=== PATIENT | female | born 1970 | race Caucasian/White ===

== ENCOUNTER 2017-07-04 18:22 | Emergency (ER) | payer MEDICAID ==
[~2017-07-04] VITALS: Ht 172.7 cm; Wt 112.2 kg
[2017-07-04] MEDS ORDERED: HYDROmorphone 1 MG/ML, 1ML IVPush PRN (19:00)
[2017-07-04] MEDS ORDERED: SODIUM CHLORIDE 0.9% 1,000 ML IV ONE (19:00)
[2017-07-04] MEDS ORDERED: ONDANSETRON 2MG/ML, 2ML IVPush ONE (19:00)
[2017-07-04] MEDS ORDERED: SODIUM CHLORIDE FLUSH 10ML SYR IVF ONE (19:00)
[2017-07-04 19:41] LABS: HEMATOCRIT 43.3 % (34.6-47.8); HEMOGLOBIN 14.6 g/dL (11.7-16.4); WHITE BLOOD COUNT 7.5 x10^3/uL (3.4-10)
[2017-07-04] MEDS ORDERED: HYDROmorphone 2 MG/ML, 1ML ONE (19:41)
[2017-07-04] MEDS ORDERED: ONDANSETRON 2MG/ML, 2ML ONE (19:41)
[2017-07-04 19:49] LABS: BLOOD UREA NITROGEN 12 mg/dL (7-18)
[2017-07-04 19:54] LABS: ASPARTATE AMINO TRANSFERASE 28 U/L (15-37); IS PT STATUS REG ER OR PRE ER? YES
[2017-07-04] MEDS ORDERED: MAGNESIUM CITRATE 300ML ORAL SOL PO ONE (20:30)
[2017-07-04 20:47] VITALS: BP 124/78
== END 2017-07-04 21:10 | disposition home or self-care (01) ==
LOC: ED 20:58
DX: K59.00 Constipation, unspecified (principal)
CPT/HCPCS: 36415; 74022; 80053; 81003; 83690; 84484; 85025; 93005; 96361; 96374; 96375; 99285; J1170; J2405; J7030

== ENCOUNTER 2018-02-06 04:58 | Emergency (ER) | payer MEDICAID ==
[~2018-02-06] VITALS: Ht 172.7 cm; Wt 106.1 kg
[2018-02-06 05:00] VITALS: BP 155/89
[2018-02-06] MEDS ORDERED: KETOROLAC 30 MG/1 ML ONE (05:24)
[2018-02-06] MEDS ORDERED: KETOROLAC 30 MG/1 ML IM ONE (05:30)
[2018-02-06 05:46] LABS: MICROSCOPIC AUTO
[2018-02-06 05:47] LABS: CULTURE INDICATED? NO
[2018-02-06 05:51] LABS: BASOPHILS # (AUTO) 0.06 x10^3/uL (0-0.1); BASOPHILS % (AUTO) 1 % (0-1); EOSINOPHILS # (AUTO) 0.46 x10^3/uL (0-0.4); EOSINOPHILS % (AUTO) 5 % (1-7); LYMPHOCYTES # (AUTO) 2.88 x10^3/uL (1-3.4); LYMPHOCYTES % (AUTO) 31 % (22-44); MD NO; MEAN CORPUSCULAR HEMOGLOBIN 27.5 pg (27.0-34.8); MEAN CORPUSCULAR HGB CONC 33.9 g/dL (32.4-35.8); MEAN CORPUSCULAR VOLUME 81.3 fL (80-100); MEAN PLATELET VOLUME 6.8 fL (7.4-10.4); MONOCYTES # (AUTO) 0.68 x10^3/uL (0.2-0.8); MONOCYTES % (AUTO) 7 % (2-9); NEUTROPHILS # (AUTO) 5.23 x10^3/uL (1.8-6.8); NEUTROPHILS % (AUTO) 56 % (42-75); PLATELET COUNT 313 x10^3/uL (130-400); RED BLOOD COUNT 5.07 x10^6/uL (3.82-5.3); RED CELL DISTRIBUTION WIDTH 13.3 % (9.6-15.2)
[2018-02-06 06:01] LABS: ALANINE AMINOTRANSFERASE 36 U/L (12-78); ALBUMIN 3.8 g/dL (3.4-5.0); ANION GAP 8 mmol/L (5-15); CALCIUM 9.3 mg/dL (8.5-10.1); CHLORIDE 109 mmol/L (98-107)
[2018-02-06 06:03] LABS: ALKALINE PHOSPHATASE 104 U/L (45-117); BILIRUBIN,TOTAL 0.2 mg/dL (0.2-1.0); TOTAL PROTEIN 7.2 g/dL (6.4-8.2)
== END 2018-02-06 07:04 | disposition home or self-care (01) ==
LOC: ED 06:52
DX: S39.012A Strain of muscle, fascia and tendon of lower back, initial encounter (principal); M46.1 Sacroiliitis, not elsewhere classified; X58.XXXA Exposure to other specified factors, initial encounter; Y93.89 Activity, other specified; Y92.89 Other specified places as the place of occurrence of the external cause; Y99.8 Other external cause status
CPT/HCPCS: 36415; 76770; 80053; 81001; 85025; 96372; 99285; J1885

== ENCOUNTER 2018-06-18 13:22 | Emergency (ER) | payer MEDICAID ==
[~2018-06-18] VITALS: Ht 172.7 cm; Wt 109.2 kg
[2018-06-18] MEDS ORDERED: METOCLOPRAMIDE 5 MG/ML, 2ML IVPush ONE (14:00)
[2018-06-18] MEDS ORDERED: SODIUM CHLORIDE FLUSH 10ML SYR IVF ONE (14:00)
[2018-06-18] MEDS ORDERED: DIPHENHYDRAMINE 50 MG/ML, 1ML IVPush ONE (14:00)
[2018-06-18] MEDS ORDERED: KETOROLAC 30 MG/1 ML IVPush ONE (14:00)
[2018-06-18] MEDS ORDERED: KETOROLAC 30 MG/1 ML ONE (14:08)
[2018-06-18] MEDS ORDERED: DIPHENHYDRAMINE 50 MG/ML, 1ML ONE (14:08)
[2018-06-18] MEDS ORDERED: METOCLOPRAMIDE 5 MG/ML, 2ML ONE (14:08)
[2018-06-18] MEDS ORDERED: BISACODYL 10 MG SUPP PR PRN (14:30)
[2018-06-18 15:05] LABS: BASOPHILS # (AUTO) 0.07 x10^3/uL (0-0.1); BASOPHILS % (AUTO) 1 % (0-1); EOSINOPHILS # (AUTO) 0.41 x10^3/uL (0-0.4); EOSINOPHILS % (AUTO) 5 % (1-7); LYMPHOCYTES # (AUTO) 2.34 x10^3/uL (1-3.4); LYMPHOCYTES % (AUTO) 29 % (22-44); MD NO; MEAN CORPUSCULAR HEMOGLOBIN 27.5 pg (27.0-34.8); MEAN CORPUSCULAR HGB CONC 33.8 g/dL (32.4-35.8); MEAN CORPUSCULAR VOLUME 81.3 fL (80-100); MEAN PLATELET VOLUME 6.6 fL (7.4-10.4); MONOCYTES % (AUTO) 7 % (2-9); NEUTROPHILS # (AUTO) 4.62 x10^3/uL (1.8-6.8); NEUTROPHILS % (AUTO) 58 % (42-75); PLATELET COUNT 334 x10^3/uL (130-400); RED BLOOD COUNT 5.43 x10^6/uL (3.82-5.3); RED CELL DISTRIBUTION WIDTH 12.8 % (9.6-15.2)
[2018-06-18 15:16] LABS: ALANINE AMINOTRANSFERASE 37 U/L (12-78); ANION GAP 9 mmol/L (5-15); CALCIUM 9.1 mg/dL (8.5-10.1); CHLORIDE 108 mmol/L (98-107); CREATININE 0.85 mg/dL (0.55-1.02)
[2018-06-18 15:16] LABS: MICROSCOPIC NOT IND
[2018-06-18 15:18] LABS: CULTURE INDICATED? NO
[2018-06-18 15:19] LABS: ALKALINE PHOSPHATASE 106 U/L (45-117); BILIRUBIN,TOTAL 0.4 mg/dL (0.2-1.0); TOTAL PROTEIN 7.9 g/dL (6.4-8.2)
[2018-06-18 15:41] VITALS: BP 106/73
[2018-06-18] MEDS ORDERED: LORA-170 PO (15:46)
[2018-06-18] MEDS ORDERED: CYCL1DRO EACHEYE (15:46)
== END 2018-06-18 16:01 | disposition home or self-care (01) ==
LOC: ED 15:50
DX: K59.00 Constipation, unspecified (principal); G43.901 Migraine, unspecified, not intractable, with status migrainosus; Z90.49 Acquired absence of other specified parts of digestive tract; Z90.13 Acquired absence of bilateral breasts and nipples; Z90.710 Acquired absence of both cervix and uterus; Z79.899 Other long term (current) drug therapy; Z88.5 Allergy status to narcotic agent; Z88.2 Allergy status to sulfonamides; Z87.39 Personal history of other diseases of the musculoskeletal system and connective tissue
CPT/HCPCS: 36415; 74021; 80053; 81003; 83690; 85025; 96374; 96375; 99284; J1200; J1885; J2765

== ENCOUNTER 2019-02-26 01:52 | Emergency (ER) | payer MEDICAID ==
[~2019-02-26] VITALS: Ht 172.7 cm; Wt 106.4 kg
[2019-02-26 04:50] VITALS: BP 136/79
== END 2019-02-26 04:56 | disposition home or self-care (01) ==
LOC: ED 03:29
DX: R10.12 Left upper quadrant pain (principal); M54.6 Pain in thoracic spine; Z85.3 Personal history of malignant neoplasm of breast; Z90.49 Acquired absence of other specified parts of digestive tract; Z90.710 Acquired absence of both cervix and uterus
CPT/HCPCS: 36415; 74177; 80053; 81003; 83690; 84703; 85025; 96374; 96375; 96376; 99284; J2270; J2405; Q9967

== ENCOUNTER 2020-12-04 15:25 | Observation (INO) | payer MEDICAID ==
[~2020-12-04] VITALS: Ht 172.7 cm; Wt 101.3 kg
[~2020-12-04 15:25] MED LIST: CYCL1DRO EACHEYE; CYCL5TAB PO; LORA-170 PO; TRAZ-175 PO
--- NOTE | 2020-12-04 15:36 | NUR ---
EKG attempted in Triage, pt too anxious to hold still, crying.
[2020-12-04] MEDS ORDERED: ASPIRIN 81 MG TABLET CHEW ONE (15:51)
[2020-12-04] MEDS ORDERED: ASPIRIN 81 MG TABLET CHEW PO ONE (16:00)
[2020-12-04 16:18] LABS: BASOPHILS % (AUTO) 1 % (0-1); EOSINOPHILS % (AUTO) 2 % (1-7); LYMPHOCYTES % (AUTO) 34 % (22-44); MEAN CORPUSCULAR HEMOGLOBIN 25.1 pg (27.0-34.8); MEAN CORPUSCULAR HGB CONC 33.4 g/dL (32.4-35.8); MEAN PLATELET VOLUME 7.2 fL (7.4-10.4); MONOCYTES % (AUTO) 11 % (2-9); NEUTROPHILS % (AUTO) 52 % (42-75); PLATELET COUNT 279 x10^3/uL (130-400); RED BLOOD COUNT 5.19 x10^6/uL (3.82-5.3); RED CELL DISTRIBUTION WIDTH 12.7 % (9.6-15.2)
[2020-12-04 16:19] LABS: MD NO
[2020-12-04 16:23] LABS: ALANINE AMINOTRANSFERASE 44 U/L (12-78); ALBUMIN 3.3 g/dL (3.4-5.0); ANION GAP 7 mmol/L (5-15); CALCIUM 9.1 mg/dL (8.5-10.1); CHLORIDE 110 mmol/L (98-107)
[2020-12-04 16:27] LABS: ALKALINE PHOSPHATASE 120 U/L (45-117); BILIRUBIN,TOTAL 0.3 mg/dL (0.2-1.0); TROPONIN I < 0.015 ng/mL (0.000-0.045)
[2020-12-04] MEDS ORDERED: SODIUM CHLORIDE 0.9% 1,000ML IVBOLUS ONE (17:30)
--- NOTE | 2020-12-04 17:30 | NUR ---
PT CAME IN CO SEVER CHEST PAIN SHE DESCRIBES SHARP. 'IT HAPPENED FOR ABOUT 20 MINUTES A COUPLE HOURS AGO. ALSO WHEN I WENT ON A HIKE YESTERDAY I WAS REALLY SOB". PT ANXIOUS AND TEARFUL. EKG COMPLETE. CONNECTED TO MONITORING EQUIPMENT.
[2020-12-04] MEDS ORDERED: OMNIPAQUE 350 MG/ML, 75ML BOTTLE ONE (17:46)
--- NOTE | 2020-12-04 18:39 | NUR ---
pt resting in [facility]. awaiting ct read
--- NOTE | 2020-12-04 19:07 | NUR ---
PT RESTING IN BED, PT A/O X4 WITH EQUAL AND UNLABORED BREATHING. PT DENIED ANY CURRENT WANTS OR NEEDS.
[2020-12-04] MEDS ORDERED: DOCU-131 PO (21:11)
[2020-12-04] MEDS ORDERED: DOCUSATE 100 MG CAPSULE PO PRN (22:30)
[2020-12-04] MEDS: HEPARIN 5,000 UNITS/ML, 1ML SQ SCH (23:00)
[2020-12-04 23:26] LABS: TROPONIN I < 0.015 ng/mL (0.000-0.045)
[2020-12-05] MEDS ORDERED: ACETAMINOPHEN 325 MG TABLET ONE (00:02)
[2020-12-05] MEDS ORDERED: MELATONIN 5 MG TABLET PO ONE (00:30)
[2020-12-05] MEDS ORDERED: ACETAMINOPHEN 325 MG TABLET PO ONE (00:30)
[2020-12-05 03:25] VITALS: BP 106/59
[2020-12-05 04:34] LABS: BASOPHILS % (AUTO) 0 % (0-1); EOSINOPHILS % (AUTO) 2 % (1-7); LYMPHOCYTES % (AUTO) 44 % (22-44); MEAN CORPUSCULAR HGB CONC 33.1 g/dL (32.4-35.8); MONOCYTES % (AUTO) 9 % (2-9); NEUTROPHILS % (AUTO) 44 % (42-75); PLATELET COUNT 250 x10^3/uL (130-400); RED BLOOD COUNT 4.95 x10^6/uL (3.82-5.3); RED CELL DISTRIBUTION WIDTH 12.6 % (9.6-15.2)
[2020-12-05 04:36] LABS: MD NO
[2020-12-05 04:45] LABS: ANION GAP 6 mmol/L (5-15); CALCIUM 9.6 mg/dL (8.5-10.1); CHLORIDE 110 mmol/L (98-107); CREATININE 0.43 mg/dL (0.55-1.02)
[2020-12-05 04:49] LABS: TROPONIN I < 0.015 ng/mL (0.000-0.045)
[2020-12-05 05:15] LABS: FREE T4 (FREE THYROXINE) 2.77 ng/dL (0.76-1.46)
[2020-12-05 08:07] VITALS: BP 120/73
[2020-12-05] MEDS ORDERED: METHIMAZOLE 5 MG TAB PO SCH (09:00)
[2020-12-05] MEDS: HEPARIN 5,000 UNITS/ML, 1ML SQ SCH ×2 (09:38→16:36)
[2020-12-05] MEDS ORDERED: METH5TAB6 PO (11:00)
[2020-12-05 14:13] VITALS: BP 123/72
== END 2020-12-05 18:43 | disposition home or self-care (01) ==
LOC: ED 19:19 → INTOOBSV 19:21 → EDIP 19:21 → 5SO 20:43
PROVIDERS: ADMIT Internal Medicine; ATTEND Internal Medicine
DX: R07.89 Other chest pain (principal); M32.9 Systemic lupus erythematosus, unspecified; G43.909 Migraine, unspecified, not intractable, without status migrainosus; M46.1 Sacroiliitis, not elsewhere classified; E66.9 Obesity, unspecified; Z85.3 Personal history of malignant neoplasm of breast; Z79.899 Other long term (current) drug therapy; Z90.710 Acquired absence of both cervix and uterus
CPT/HCPCS: 36415; 71045; 71275; 80048; 80053; 83735; 84439; 84443; 84481; 84484; 85025; 85379; 93005; 93017; 93306; 93356; G0378; J1644; J7030; Q9967; 96360; 96372